=== PATIENT | male | born 1995 | race Hispanic/Latino ===

== ENCOUNTER 2022-02-15 15:52 | Emergency (ER) | payer OTHER ==
[~2022-02-15] VITALS: Ht 167.6 cm; Wt 86.2 kg
[2022-02-15] MEDS ORDERED: LIDOCAINE HCL 1% 20 ML VIAL INJ STA (15:59)
[2022-02-15] MEDS ORDERED: TETANUS/DIPHTHERIA TOXOID [ADULT] 0.5 ML VIAL IM ONE (16:00)
[2022-02-15] MEDS ORDERED: LIDOCAINE HCL MPF 1% 5ML VIAL ONE (16:18)
[2022-02-15] MEDS ORDERED: CEPH500B PO (17:00)
[2022-02-15] MEDS ORDERED: NAPR-1196 PO (17:00)
[2022-02-15 17:03] VITALS: BP 135/74
== END 2022-02-15 17:47 | disposition home or self-care (01) ==
LOC: EDH 15:52
DX: L05.01 Pilonidal cyst with abscess (principal); Z90.89 Acquired absence of other organs
CPT/HCPCS: 10080; 90471; 90714; 99283; J3490